=== PATIENT | female | born 1995 | race Asian ===

== ENCOUNTER 2019-08-26 00:04 | Emergency (ER) | payer OTHER ==
[2019-08-26] MEDS ORDERED: Acetaminophen TAB* 325 MG PO ONE (00:19)
--- NOTE | 2019-08-26 00:35 | ED ---
Lower Extremity - HPI Summary HPI Summary: 23 yo female presents with right knee abrasion. [place] and hit her elbow on the ground. She bandaged the knee and came to the ED. At the time of this interview she has no elbow pain and has FROM. Nothing OTC for discomfort. tetanus is up to date. - History of Current Complaint Chief Complaint: EDExtremityLower Stated Complaint: FALL PER PT Time Seen by Provider: 08/26/19 00:34 Hx Obtained From: Patient Severity Initially: Moderate Severity Currently: Moderate Pain Intensity: 5 Pain Scale Used: 0-10 Numeric - Allergies/Home Medications Allergies/Adverse Reactions: Allergies Allergy/AdvReac Type Severity Reaction Status Date / Time No Known Allergies Allergy Verified 08/26/19 00:06 PMH/Surg Hx/FS Hx/Imm Hx Endocrine/Hematology History: Denies: Hx Diabetes Cardiovascular History: Denies: Hx Hypotension, Hx Hypertension Respiratory History: Denies: Hx Asthma, Hx Chronic Obstructive Pulmonary Disease (COPD) Neurological History: Denies: Hx CVA, Hx Headaches - Surgical History Surgical History: None - Immunization History Immunizations Up to Date: Yes Infectious Disease History: No Infectious Disease History: Denies: Traveled Outside the [place] in Last 30 Days - Family History Known Family History: Positive: None - Social History Occupation: Student Lives: Dormitory/Roommates Alcohol Use: None Substance Use Type: Reports: None Smoking Status (MU): Never Smoked Tobacco Review of Systems Constitutional: Negative Cardiovascular: Negative Respiratory: Negative Gastrointestinal: Negative Skin: Other - Abrasion right knee Neurological: Negative Psychological: Normal All Other Systems Reviewed And Are Negative: No Physical Exam - Summary Physical Exam Summary: GENERAL: NAD. WDWN. No pain distress. SKIN: RIGHT KNEE: Overlying the patella there is a 5mm superficial linear abrasion with small skin avulsion. Clean appearing. No active bleeding. No FB CHEST: No accessory muscle use. Breathing comfortably and in no distress. CV: Pulses intact popliteal, PT, and DP. Cap refill <2seconds MSK: RIGHT KNEE: FROM. Strength 5/5. No edema or obvious bony deformities. No patella apprehension. Negative Selena, A/P drawer, Marco, and varus/valgus stress. NEURO: Alert. Sensations intact and symmetric B/L LEs PSYCH: Age appropriate behavior. Triage Information Reviewed: Yes Vital Signs On Initial Exam: Initial Vitals Temp Pulse Resp BP Pulse Ox 98.0 F 70 18 101/79 100 08/26/19 00:06 08/26/19 00:06 08/26/19 00:06 08/26/19 00:06 08/26/19 00:06 Vital Signs Reviewed: Yes Procedures - Sedation Patient Received Moderate/Deep Sedation with Procedure: No Diagnostics - Vital Signs Vital Signs Temp Pulse Resp BP Pulse Ox 08/26/19 00:06 98.0 F 70 18 101/79 100 - Laboratory Lab Statement: Any lab studies that have been ordered have been reviewed, and results considered in the medical decision making process. Lower Extremity Course/Dx - Course Course Of Treatment: Wound cleansed with normal saline. She was given bactroban ointment and advised to change the dressing daily and use the bactroban cream once a day for 1 week. - Diagnoses Provider Diagnoses: Abrasion of right knee Discharge ED - Sign-Out/Discharge Documenting (check all that apply): Patient Departure - Discharge Plan Condition: Stable Disposition: HOME Patient Education Materials: Abrasion (ED) Referrals: Anastasia Lin NP [Primary Care Provider] - Additional Instructions: If you develop a fever, shortness of breath, chest pain, new or worsening symptoms - please call your PCP or go to the ED immediately. Change the band-aid daily and apply a small amount of the antibiotic cream to prevent infection for about 1 week - Billing Disposition and Condition Condition: STABLE Disposition: Home - Attestation Statements Provider Attestation: the patient was seen by the midlevel provider, it was determined by them that it was not necessary for me to see the patient, I was available for consult during the patient's visit in the ED. I did not establish and patient-physician relationship. The chart however has been reviewed and I am signing in an administrative capacity.
[2019-08-26] MEDS ORDERED: Mupirocin 2% OINT* TUBE TOPICAL ONE (01:01)
[2019-08-26 01:31] VITALS: BP 112/76
== END 2019-08-26 01:20 | disposition home or self-care (01) ==
LOC: ED 00:04
DX: S80.211A Abrasion, right knee, initial encounter (principal); W01.0XXA Fall on same level from slipping, tripping and stumbling without subsequent striking against object, initial encounter; Y92.89 Other specified places as the place of occurrence of the external cause
CPT/HCPCS: 99282; A9270-GY